=== PATIENT | male | born 1975 | race Caucasian/White ===

== ENCOUNTER 2021-11-09 00:35 | Emergency (ER) | payer MEDICAID ==
[~2021-11-09] VITALS: Ht 185.4 cm; Wt 129.3 kg
[2021-11-09 01:04] VITALS: BP_SYST 141
--- NOTE | 2021-11-09 01:07 | NUR ---
EKG GIVEN TO FOR INTERPRETATION.
--- NOTE | 2021-11-09 01:20 | NUR ---
PT AMBULATED TO BED 3, NO S/S OF DISTRESS NOTED. PT PLACED IN GOWN AND ON C-MONITOR.
--- NOTE | 2021-11-09 01:44 | NUR ---
URINE SENT TO LAB.
[2021-11-09] MEDS ORDERED: ASPIRIN 81 MG TAB.CHEW PO ONE (02:15)
[2021-11-09 02:17] LABS: BASOPHILS # (AUTO) 0.1 K/uL (0.0-0.2); BASOPHILS % (AUTO) 0.9 % (0.0-2.0); EOSINOPHILS % (AUTO) 0.4 % (0.0-4.0); HEMATOCRIT 42.3 % (36-54); HEMOGLOBIN 14.9 g/dL (14.0-18.0); LYMPHOCYTES # (AUTO) 1.7 K/uL (1.0-5.5); LYMPHOCYTES % (AUTO) 30.3 % (20.5-51.5); MEAN CORPUSCULAR HEMOGLOBIN 33 pg (27-31); MEAN CORPUSCULAR HGB CONC 35 % (32-36); MEAN CORPUSCULAR VOLUME 95 fL (79.0-98.0); MONOCYTES # (AUTO) 0.4 K/uL (0.0-1.0); MONOCYTES % (AUTO) 6.2 % (1.7-9.3); NEUTROPHILS # (AUTO) 3.6 K/uL (1.8-7.7); NEUTROPHILS % (AUTO) 62.2 % (40.0-70.0); PLATELET COUNT (AUTO) 274 K/uL (130-430); RED BLOOD CELL COUNT(AUTO) 4.48 MIL/uL (4.2-6.2); RED CELL DISTRIBUTION WIDTH 12.3 % (9.0-15.0); WHITE BLOOD COUNT (AUTO) 5.7 K/uL (4.8-10.8)
[2021-11-09 02:32] LABS: ANION GAP 10 (5-15); CALCIUM 8.8 mg/dL (8.4-11.0); CHLORIDE 100 mmol/L (98-107); CREATININE 1.01 mg/dL (0.55-1.30); GLUCOSE 140 mg/dL (70-99); POTASSIUM 3.7 mmol/L (3.5-5.1); SODIUM SERUM 134 mmol/L (136-145); UREA NITROGEN, BLOOD 12 mg/dL (8-21)
[2021-11-09 02:39] LABS: ALANINE AMINOTRANSFERASE 48 U/L (12-78); ALBUMIN 4.1 g/dL (3.4-4.8); ASPARTATE AMINOTRANSFERASE 28 U/L (10-37); TOTAL BILIRUBIN 0.4 mg/dL (0.0-1.0)
[2021-11-09 02:44] LABS: GFR AFRICAN AMERICAN 103 mL/min (>90)
--- NOTE | 2021-11-09 03:30 | NUR ---
PT RESTING, NO S/S OF DISTRESS NOTED. VSS. PT DENIES ANY NEEDS OR PAIN AT THIS TIME. SIGNIFICANT OTHER AT BEDSIDE.
--- NOTE | 2021-11-09 04:56 | NUR ---
Pt states pain has resolved at this time. Denies chest pressure and SOB. normal skin color for ethnicity.
[2021-11-09] MEDS ORDERED: LISI-209 PO (05:12)
[2021-11-09] MEDS ORDERED: ASPI-1393 PO (05:12)
[2021-11-09 05:46] VITALS: BP_SYST 126
--- NOTE | 2021-11-09 05:49 | NUR ---
DC INSTRUCTIONS GIVEN TO PT WITH FULL RETURNED VERBAL UNDERSTANDING. IV DC'D, CATHETER INTACT. SMALL PRESSURE DRESSING APPLIED. PT DENIES ANY PAIN. VSS. PT AMBULATES TO EXIT WITH STEADY GAIT.
== END 2021-11-09 05:49 | disposition home or self-care (01) ==
LOC: SED 00:35
DX: R07.9 Chest pain, unspecified (principal); R03.0 Elevated blood-pressure reading, without diagnosis of hypertension
CPT/HCPCS: 36415; 71045; 80053; 83880; 84484; 85025; 93005; 99285